=== PATIENT | male | born 1960 | race American Indian/Alaskan Native ===

== ENCOUNTER 2017-11-09 14:46 | Emergency (ER) | payer SELFPAY ==
--- NOTE | 2017-11-09 16:07 | XRay Report ---
FINAL REPORT EXAM: XR CHEST 1V AP HISTORY: chest pain TECHNIQUE: Single, portable chest x-ray. PRIORS: None. FINDINGS: Cardiac silhouette prominent, which may be due in part to portable technique. Lungs are normally expanded. No significant vascular congestion. No focal consolidation or apparent pneumothorax. Bony thorax grossly unremarkable. IMPRESSION: 1. No acute findings.
[2017-11-09 16:08] LABS: Basophils % (Auto) 0.2 % (0.0-1.8); Eosinophils # (Auto) 0.1 K/mm3 (0.0-0.4); Eosinophils % (Auto) 0.7 % (0.0-4.3); Hematocrit 39.3 % (35.5-45.6); Hemoglobin 12.2 gm/dl (11.8-15.2); Lymphocytes # (Auto) 1.7 K/mm3 (1.2-5.4); Lymphocytes % (Auto) 20.4 % (13.4-35.0); Mean Corpuscular HGB Conc 31 % (32-34); Mean Corpuscular Volume 74 fl (84-94); Monocytes # (Auto) 0.7 K/mm3 (0.0-0.8); Monocytes % (Auto) 8.4 % (0.0-7.3); Platelet Count 238 K/mm3 (140-440); Red Blood Count 5.33 M/mm3 (3.65-5.03); Red Cell Distribution Width 17.6 % (13.2-15.2)
[2017-11-09 16:12] LABS: Mean Corpuscular Hemoglobin 23 pg (28-32)
[2017-11-09 16:21] LABS: BUN/Creatinine Ratio 13; Blood Urea Nitrogen 17 mg/dL (9-20); Calcium 9.2 mg/dL (8.4-10.2); Hemolysis Index 0
--- NOTE | 2017-11-09 17:09 | Emergency Department Report ---
HPI - General Chief Complaint: Dyspnea/Respdistress Time Seen by Provider: 11/09/17 15:39 - HPI HPI: The patient is a 57-year-old male with a significant history of uncontrolled hypertension, who presents for evaluation of dyspnea. The patient reports 2 weeks of progressive dyspnea, severe the past week, worsening with lying flat or exertion, improved with sitting up. The patient denies fever, neck pain, parasthesias, chest pain, cough, hemoptysis, palpitations, dizziness, syncope, unilateral leg swelling, calf muscle pain. Patient also denies cocaine or other stimulant use, history of DVT or PE, recent immobilization, or history of cancer. ED Past Medical Hx - Past Medical History Previous Medical History?: No - Surgical History Past Surgical History?: No - Social History Smoking Status: Current Every Day Smoker Substance Use Type: Alcohol ED Review of Systems ROS: Stated complaint: DIFFICULTY BREATHING Other details as noted in HPI Constitutional: denies: fever ENT: denies: throat or neck pain Respiratory: denies: cough reports shortness of breath Cardiovascular: denies: chest pain Endocrine: denies unexplained weight loss or gain Gastrointestinal: denies: abdominal pain, nausea Genitourinary: denies: dysuria Musculoskeletal: denies: leg swelling Skin: denies: rash Neurological: denies: headache Hematological/Lymphatic: denies: easy bleeding or easy bruising Psych: denies sadness or hopelessness Physical Exam - Physical Exam Vital Signs: Vital Signs 11/09/17 11/09/17 11/09/17 14:56 15:00 15:01 Temperature 98.3 F Pulse Rate 100 H 102 H Respiratory 26 H 25 H Rate Blood Pressure 128/83 O2 Sat by Pulse 98 97 98 Oximetry 11/09/17 11/09/17 11/09/17 15:10 15:15 15:30 Temperature Pulse Rate 98 H 96 H Respiratory 26 H 23 23 Rate Blood Pressure 126/78 123/83 O2 Sat by Pulse 95 96 Oximetry Physical Exam: General: well-nourished, well-developed, no acute distress Head: Normocephalic, atraumatic Eyes: normal sclera ENT: Mucous membranes are pink and moist Neck: trachea midline, neck supple, No neck stiffness, no cervical adenopathy Respiratory: Breath sounds equal bilaterally, no wheezing, rales, or rhonchi Cardio: S1 and S2 present, no murmurs, rubs, gallops, capillary refill is brisk Abdomen: Normoactive bowel sounds, soft abdomen, no rigidity, no guarding or rebound tenderness Musc: 1+ pitting edema of bilateral lower legs present Skin: No rash Neuro: no facial drooping, normal speech Psych: Normal affect ED Course Vital Signs 11/09/17 11/09/17 11/09/17 14:56 15:00 15:01 Temperature 98.3 F Pulse Rate 100 H 102 H Respiratory 26 H 25 H Rate Blood Pressure 128/83 O2 Sat by Pulse 98 97 98 Oximetry 11/09/17 11/09/17 11/09/17 15:10 15:15 15:30 Temperature Pulse Rate 98 H 96 H Respiratory 26 H 23 23 Rate Blood Pressure 126/78 123/83 O2 Sat by Pulse 95 96 Oximetry ED Medical Decision Making - Lab Data Result diagrams: 11/09/17 15:46 11/09/17 15:46 - Medical Decision Making The patient was seen and examined by myself. The patient is placed on a monitoring engineer and continuous pulse ox. On initial evaluation, the patient was found to be in no distress. EKG was negative for findings suggestive of acute cardiac infarct. Labs and imaging are obtained. Chest x-ray exhibited borderline cardiomegaly and mild pulmonary vascular congestion, and otherwise was negative for pneumothorax, focal consolidation, pulmonary vascular congestion, pleural effusion, or other obvious acute cardiopulmonary disease process. Lab results revealed elevated BNP of greater than 300, and mildly elevated d-dimer of 250, and otherwise labs were unrevealing. The patient is given Lasix for treatment of suspected undiagnosed congestive heart failure. CT angiogram of the chest is negative for acute pulmonary embolus. The patient was reevaluated and reported that their symptoms were improved. As the patient has a KARLO risk score less than 2, and a negative CT angiogram of the chest, the patient is at low risk of ACS or pulmonary emboli etiology of their symptoms. The patient is stable for discharge with outpatient follow-up. The patient is given follow-up and return instructions. The patient expressed understanding and agreed with the plan. The patient is discharged in stable condition. Critical care attestation.: If time is entered above; I have spent that time in minutes in the direct care of this critically ill patient, excluding procedure time. ED Disposition Clinical Impression: New onset of congestive heart failure Dyspnea Qualifiers: Dyspnea type: unspecified Qualified Code(s): R06.00 - Dyspnea, unspecified Disposition: TO HOME OR SELFCARE Is pt being admited?: No Does the pt Need Aspirin: No Condition: Stable Instructions: Heart Failure (ED), Pulmonary Edema (ED), Low Sodium Diet (ED) Referrals: PRIMARY CARE, [Primary Care Provider] - 3-5 Days ROXANA SINGLETON MD [Staff Physician] - 3-5 Days [facility] [Outside] - 3-5 Days Time of Disposition: 17:09
--- NOTE | 2017-11-09 18:05 | Cat Scan Report ---
FINAL REPORT EXAM: CT ANGIO CHEST HISTORY: dyspnea TECHNIQUE: Spiral CTA of the chest after the uneventful administration of IV contrast. Multiplanar reformations. 100 mL Omnipaque IV. PRIORS: None. FINDINGS: Chest: The main and bilateral proximal pulmonary arteries are normally opacified without endoluminal filling defects. No apparent aneurysm, pseudoaneurysm or aortic dissection. No significant lymph node enlargement or axillary adenopathy. Lungs show probable mild bibasilar atelectasis versus scarring. No discrete parenchymal mass, focal consolidation or pleural effusions. No apparent pneumothorax. Visualized upper abdomen grossly unremarkable. IMPRESSION: 1. No evidence of large vessel or central pulmonary emboli. No acute consolidation.
[2017-11-09 20:16] VITALS: BP 156/91
== END 2017-11-09 20:17 | disposition home or self-care (01) ==
LOC: ED 14:46
DX: R06.00 Dyspnea, unspecified (principal); I50.9 Heart failure, unspecified
CPT/HCPCS: 36415; 71045; 71275; 80048; 83880; 85025; 85379; 93005; 93010; 99285; Q9967